=== PATIENT | male | born 1955 | race Caucasian/White ===

== ENCOUNTER 2017-03-24 14:05 | Emergency (ER) | payer OTHER ==
--- NOTE | 2017-03-24 14:28 | EDM.PDOC ---
[id number]: RASH ON LEG, DIABETIC Time Seen by Provider: 03/24/17 14:27 Source of Information: Reports: Patient, Family, Old Records, RN, RN Notes Reviewed History Limitations: Reports: No Limitations - History of Present Illness INITIAL COMMENTS - FREE TEXT/NARRATIVE: C/O rash on leg, getting worse. Pt thought is was a sunburn at first, but it became more painful and red. Pt is on diabetic medications. The only thing that he can think of that has been new or different is that his legs have been exposed to the sun more than in the past. He first developed that rash after a long day in the sun wearing shorts. Duration: Constant, Waxing/Waning Location: Reports: Lower Extremity, Left, Lower Extremity, Right Quality: Reports: Ache Severity: Moderate Improves with: Reports: None Worsens with: Reports: None Associated Symptoms: Reports: No Other Symptoms - Related Data Allergies Allergy/AdvReac Type Severity Reaction Status Date / Time No Known Allergies Allergy Verified 03/24/17 14:30 Home Meds: Home Meds Canagliflozin [Invokana] 1 tab PO DAILY 03/24/17 [History] Glimepiride [Amaryl] 1 tab PO DAILY 03/24/17 [History] Simvastatin [Zocor] 10 mg PO DAILY 03/24/17 [History] Telmisartan 1 tab PO DAILY 03/24/17 [History] metFORMIN [Glucophage] 1 tab PO DAILY 03/24/17 [History] Past Medical History Cardiovascular History: Reports: High Cholesterol, Hypertension Endocrine/Metabolic History: Reports: Diabetes, Type II, Obesity/BMI 30+ Social & Family History - Family History Family Medical History: Noncontributory - Living Situation & Occupation Living situation: Reports: , with Spouse ED ROS GENERAL - Review of Systems Review Of Systems: ROS reveals no pertinent complaints other than HPI. ED EXAM, SKIN/RASH Exam: See Below Exam Limited By: No Limitations General Appearance: Alert, WD/WN, No Apparent Distress Eye Exam: Bilateral Eye: Normal Inspection Throat/Mouth: Normal Inspection Head: Atraumatic, Normocephalic Neck: Normal Inspection, Supple, Non-Tender, Full Range of Motion Respiratory/Chest: No Respiratory Distress, Lungs Clear, Normal Breath Sounds, No Accessory Muscle Use, Chest Non-Tender Cardiovascular: Normal Peripheral Pulses, Regular Rate, Rhythm, No Edema, No Gallop, No JVD, No Murmur, No Rub GI/Abdominal: Normal Bowel Sounds, Soft, Non-Tender, No Organomegaly, No Distention, No Abnormal Bruit Back Exam: Normal Inspection Extremities: Normal Inspection, Normal Range of Motion, No Pedal Edema, Normal Capillary Refill Neurological: Alert, Oriented, CN II-XII Intact, Normal Cognition, Normal Gait, No Motor/Sensory Deficits Psychiatric: Normal Affect, Normal Mood Skin: Warm, Dry, Intact, Rash (dark red-burgandy colored non-blanching, tender rash to B/L lower exts. for ankles to just above the knees) Characteristics: Macular, Petechial Associated features: No: Warmth Course - Vital Signs Last Recorded V/S: Last Vital Signs Temp 36.5 C 03/24/17 14:26 Pulse 68 03/24/17 14:26 Resp 16 03/24/17 14:26 BP 159/70 H 03/24/17 14:26 Pulse Ox 97 03/24/17 14:26 - Orders/Labs/Meds Labs: Laboratory Tests 03/24/17 03/24/17 03/24/17 Range/Units 14:55 14:55 14:55 WBC 6.8 (5.0-10.0) 10^3/uL RBC 5.26 (4.6-6.2) 10^6/uL Hgb 15.5 (14.0-18.0) g/dL Hct 45.2 (40.0-54.0) % MCV 85.9 (80-100) fL MCH 29.5 (27.0-34.0) pg MCHC 34.3 (33.0-35.0) g/dL Plt Count 215 (150-450) 10^3/uL Neut % (Auto) 36.9 L (42.2-75.2) % Lymph % (Auto) 50.0 (20.5-50.1) % [place] % (Auto) 9.4 H (2-8) % Eos % (Auto) 3.1 H (1.0-3.0) % Baso % (Auto) 0.6 (0.0-1.0) % ESR 13 (0-15) mm/hr Sodium 140 (135-145) mmol/L Potassium 4.6 (3.6-5.0) mmol/L Chloride 103 (101-111) mmol/L Carbon Dioxide 25.0 (21.0-31.0) mmol/L Anion Gap 16.6 BUN 16 (7-18) mg/dL Creatinine 0.9 (0.6-1.3) mg/dL Est Cr Clr Drug Dosing 82.92 mL/min Estimated GFR (MDRD) > 60 BUN/Creatinine Ratio 17.77 Glucose 222 H (74-105) mg/dL Calcium 9.1 (8.4-10.2) mg/dl Total Bilirubin 0.7 (0.2-1.0) mg/dL AST 17 (10-42) IU/L ALT 24 (10-60) IU/L Alkaline Phosphatase 35 L (42-121) IU/L C-Reactive Protein 1.1 (0.0-1.3) mg/dL Total Protein 7.1 (6.7-8.2) g/dl Albumin 3.9 (3.2-5.5) g/dl Globulin 3.2 Albumin/Globulin Ratio 1.22 Urine Color (YELLOW) Urine Appearance (CLEAR) Urine pH (5.0-9.0) Ur Specific [place] (1.005-1.030) Urine Protein (NEGATIVE) Urine Glucose (UA) (NEGATIVE) Urine Ketones (NEGATIVE) Urine Occult Blood (NEGATIVE) Urine Nitrite (NEGATIVE) Urine Bilirubin (NEGATIVE) Urine Urobilinogen (0.2-1.0) mg/dL Ur Leukocyte Esterase (NEGATIVE) Urine RBC /HPF Urine WBC (0-5/HPF) /HPF Urine Bacteria (0-FEW/HPF) /HPF 03/24/17 Range/Units 15:20 WBC (5.0-10.0) 10^3/uL RBC (4.6-6.2) 10^6/uL Hgb (14.0-18.0) g/dL Hct (40.0-54.0) % MCV (80-100) fL MCH (27.0-34.0) pg MCHC (33.0-35.0) g/dL Plt Count (150-450) 10^3/uL Neut % (Auto) (42.2-75.2) % Lymph % (Auto) (20.5-50.1) % [place] % (Auto) (2-8) % Eos % (Auto) (1.0-3.0) % Baso % (Auto) (0.0-1.0) % ESR (0-15) mm/hr Sodium (135-145) mmol/L Potassium (3.6-5.0) mmol/L Chloride (101-111) mmol/L Carbon Dioxide (21.0-31.0) mmol/L Anion Gap BUN (7-18) mg/dL Creatinine (0.6-1.3) mg/dL Est Cr Clr Drug Dosing mL/min Estimated GFR (MDRD) BUN/Creatinine Ratio Glucose (74-105) mg/dL Calcium (8.4-10.2) mg/dl Total Bilirubin (0.2-1.0) mg/dL AST (10-42) IU/L ALT (10-60) IU/L Alkaline Phosphatase (42-121) IU/L C-Reactive Protein (0.0-1.3) mg/dL Total Protein (6.7-8.2) g/dl Albumin (3.2-5.5) g/dl Globulin Albumin/Globulin Ratio Urine Color Light yellow (YELLOW) Urine Appearance Clear (CLEAR) Urine pH 5.0 (5.0-9.0) Ur Specific [place] <= 1.005 (1.005-1.030) Urine Protein Negative (NEGATIVE) Urine Glucose (UA) 500 H (NEGATIVE) Urine Ketones 15 H (NEGATIVE) Urine Occult Blood Negative (NEGATIVE) Urine Nitrite Negative (NEGATIVE) Urine Bilirubin Negative (NEGATIVE) Urine Urobilinogen 0.2 (0.2-1.0) mg/dL Ur Leukocyte Esterase Negative (NEGATIVE) Urine RBC 0-5 /HPF Urine WBC 0-5 (0-5/HPF) /HPF Urine Bacteria Rare (0-FEW/HPF) /HPF Departure - Departure Time of Disposition: 15:56 Disposition: Home, Self-Care 01 Condition: Good Clinical Impression: Vasculitis limited to skin - Discharge Information Instructions: Vasculitis Referrals: Petra Diaz NP [Primary Care Provider] - Forms: ED Department Discharge Additional Instructions: Avoid sun exposure to your leg. Stop taking your Glimepiride and contact your primary doctor. Follow up in clinic with your doctor this week. Return to ER if worse at any time.
[2017-03-24 15:14] VITALS: BP 159/70
[2017-03-24 15:22] LABS: CHLORIDE,CL 103 mmol/L (101-111); SODIUM,NA 140 mmol/L (135-145)
== END 2017-03-24 16:10 | disposition home or self-care (01) ==
LOC: DL.ED 14:05
DX: L95.9 Vasculitis limited to the skin, unspecified (principal); E78.00 Pure hypercholesterolemia, unspecified; I10 Essential (primary) hypertension; E11.9 Type 2 diabetes mellitus without complications; E66.9 Obesity, unspecified; Z79.84 Long term (current) use of oral hypoglycemic drugs; Z79.899 Other long term (current) drug therapy
CPT/HCPCS: 36415; 80053; 81001; 85025; 85651; 86140; 99283

== ENCOUNTER → 2019-02-23 | Outpatient (CLI) | payer MEDICARE, OTHER | LOC: DL.CLIN 08:00 | CPT/HCPCS: 99213; G0439 ==

== ENCOUNTER 2021-04-25 06:12 | Day surgery (SDC) | payer MEDICARE, OTHER ==
[~2021-04-25 06:12] MED LIST: Proparacaine 0.5% Ophth Soln 15 ML Bottle ONE
[2021-04-25] MEDS ORDERED: Dexamethasone 4 MG/ML SDV IV ONE (06:13)
[2021-04-25] MEDS ORDERED: Midazolam 1 MG/ML 2 ML SDV IV ONE (06:13)
[2021-04-25] MEDS ORDERED: Sodium Chloride 0.9% 10 ML Syringe IV ONE (06:13)
[2021-04-25] MEDS ORDERED: Acetaminophen 325 MG Tab PO PRN (06:30)
[2021-04-25] MEDS ORDERED: Acetaminophen/Codeine 300-30 MG Tab PO PRN (06:30)
[2021-04-25] MEDS ORDERED: Ondansetron 4 MG/2 ML SDV IVPUSH PRN (06:30)
[2021-04-25] MEDS: Proparacaine 0.5% Ophth Soln 15 ML Bottle EYELF ONE (06:40)
[2021-04-25] MEDS: Povidone-Iodine 5% Sterile Ophth Soln 30 ML Bottle EYELF ONE ×2 (06:41→07:53)
[2021-04-25] MEDS: Moxifloxacin 0.5% Ophth Soln 3 ML Bottle EYELF ONE (06:42)
[2021-04-25] MEDS: Tropicamide 1% Ophth Soln 15 ML Bottle EYELF ONE (06:43)
[2021-04-25] MEDS: Phenylephrine 10% Ophth Soln 5 ML Bot EYELF ONE (06:44)
[2021-04-25] MEDS: Timolol Maleate 0.5% Ophth Soln 5 ML Bottle EYELF ONE (06:44)
[2021-04-25] MEDS: Cataract Ophth Solution EYELF ONE (06:46)
[2021-04-25] MEDS: Sodium Chloride 0.9% 10 ML Syringe FLUSH PRN (06:48)
[2021-04-25] MEDS: Tetracaine HCl/PF 0.5% 4 ML Bottle EYELF ONE (07:53)
[2021-04-25] MEDS: Lidocaine 1% 30 ML SDV ONE (07:53)
[2021-04-25] MEDS: Apraclonidine 0.5% Ophth Soln 5 ML Bot EYELF ONE (07:53)
[2021-04-25] MEDS: Diclofenac Sodium 0.1% Ophth Soln 5 ML Bottle EYELF ONE (07:53)
[2021-04-25] MEDS: Vancomycin 500 MG SDV EYELF ONE (07:54)
[2021-04-25] MEDS: Balanced Salt Solution Ophth Irrig 500 ML Bottle IOCULAR ONE (07:54)
[2021-04-25] MEDS: Dexamethasone/Neomycin/Polymyxin B Ophth Oint 3.5 GM Tube EYELF ONE (07:54)
[2021-04-25] MEDS: Chondroitin Sulfate/Hyaluronate Sodium Ophth Inj 0.75 ML Syringe EYELF ONE (07:54)
--- NOTE | 2021-04-25 09:57 | OR ---
DATE: 04/25/2021 PREOPERATIVE DIAGNOSIS: Visually significant mixed cataract, left eye. POSTOPERATIVE DIAGNOSIS: Visually significant mixed cataract, left eye. PROCEDURE: Extracapsular cataract extraction with intraocular lens implant, left eye. ANESTHESIA: Topical/local MAC. COMPLICATIONS: None. INDICATION: Mr. Olson was seen in the clinic. He has complained of a slow progressive decrease in vision, difficulty seeing television and books, difficulty reading, difficulty with driving, difficulty seeing road signs, difficulty with bright lights and glare. Explained the options, offered cataract surgery, and I explained risks including the potential for infection, retinal detachment, loss of vision, need for additional surgery, amongst others. He did see his regular veterinary toxicologist, Dr. Romero. Dr. Romero was not able to improve his vision and meet his visual needs with a change in glasses. He has requested cataract surgery to reduce symptoms and he has requested a monofocal implant. OPERATIVE DESCRIPTION: After informed consent was obtained and the risks, benefits, and alternatives were explained, the patient was brought to the operative suite and topical anesthesia was administered. The patient was then prepped and draped in the sterile fashion and attention was placed on the left eye. A sterile lid speculum was placed into the left eye to allow operative exposure. A full-thickness paracentesis was made in the temporal portion of the operative eye. Preservative-free lidocaine 0.1 mL was injected into the anterior chamber followed by viscoelastic. A full-thickness corneal incision was then made into the anterior chamber. A bent needle cystotome was used to create a small destiny in the anterior capsule. The capsulorrhexis forceps was then used to create a 360-degree curvilinear capsulorrhexis. The nucleus was then removed using a phacoemulsification handpiece and the remaining cortical material was then removed with irrigation and aspiration handpiece. Following removal of the cortical material, the capsular bag was then inspected and noted to be free of any holes or tears. Viscoelastic was then injected into the capsular bag and the intraocular lens was inserted into the capsular bag. The viscoelastic material was then removed from both the anterior and posterior chambers and from behind the IOL. The lens and capsular bag were then reinspected. The IOL was well centered and the capsular bag intact. The wound and paracentesis sites were inspected and hydrated with balanced saline solution. Both were found to be self- sealing. The intraocular pressure was assessed digitally and found to be within normal range. A good red reflex was noted at the completion of the procedure. No complications occurred during the operation. At the completion of the procedure, Maxitrol, Voltaren, and Iopidine drops were placed into the operative eye. A sterile eye shield was placed over the operative eye and the patient was transported to the postoperative recovery area having tolerated the procedure well. Postoperative instructions were given along with a postoperative appointment. The patient was advised to call with any questions or concerns. [facility] /[id number]
[2021-04-25 13:06] VITALS: BP 142/70; PULSE 67
== END 2021-04-25 09:00 | disposition home or self-care (01) ==
LOC: DL.SDS 06:12
PROVIDERS: ATTEND Ophthalmology
DX: E11.36 Type 2 diabetes mellitus with diabetic cataract (principal); H26.8 Other specified cataract; I10 Essential (primary) hypertension; E78.5 Hyperlipidemia, unspecified; Z79.82 Long term (current) use of aspirin; Z79.84 Long term (current) use of oral hypoglycemic drugs; Z79.899 Other long term (current) drug therapy
CPT/HCPCS: 00142; A9270-GY; J1100; J2250; J3370; V2632

== ENCOUNTER 2021-05-02 06:34 | Day surgery (SDC) | payer MEDICARE, OTHER ==
[2021-05-02] MEDS ORDERED: Sodium Chloride 0.9% 10 ML Syringe IV ONE (06:35)
[2021-05-02] MEDS ORDERED: Dexamethasone 4 MG/ML SDV IV ONE (06:35)
[2021-05-02] MEDS ORDERED: Midazolam 1 MG/ML 2 ML SDV IV ONE (06:35)
[2021-05-02] MEDS ORDERED: Phenylephrine 10% Ophth Soln 5 ML Bot EYERT ONE (07:00)
[2021-05-02] MEDS ORDERED: Timolol Maleate 0.5% Ophth Soln 5 ML Bottle EYERT ONE (07:00)
[2021-05-02] MEDS ORDERED: Ondansetron 4 MG/2 ML SDV IVPUSH PRN (07:00)
[2021-05-02] MEDS ORDERED: Acetaminophen 325 MG Tab PO PRN (07:00)
[2021-05-02] MEDS ORDERED: Povidone-Iodine 5% Sterile Ophth Soln 30 ML Bottle EYERT ONE ×2 (07:00→08:26)
[2021-05-02] MEDS ORDERED: Proparacaine 0.5% Ophth Soln 15 ML Bottle EYERT ONE (07:00)
[2021-05-02] MEDS ORDERED: Moxifloxacin 0.5% Ophth Soln 3 ML Bottle EYERT ONE (07:00)
[2021-05-02] MEDS ORDERED: Cataract Ophth Solution EYERT ONE (07:00)
[2021-05-02] MEDS ORDERED: Tropicamide 1% Ophth Soln 15 ML Bottle EYERT ONE (07:00)
[2021-05-02] MEDS ORDERED: Sodium Chloride 0.9% 10 ML Syringe FLUSH PRN (07:00)
[2021-05-02] MEDS ORDERED: Acetaminophen/Codeine 300-30 MG Tab PO PRN (07:00)
[2021-05-02] MEDS ORDERED: Lidocaine 1% 30 ML SDV ONE (08:25)
[2021-05-02] MEDS ORDERED: Apraclonidine 0.5% Ophth Soln 5 ML Bot EYERT ONE (08:26)
[2021-05-02] MEDS ORDERED: Dexamethasone/Neomycin/Polymyxin B Ophth Oint 3.5 GM Tube EYERT ONE (08:26)
[2021-05-02] MEDS ORDERED: Diclofenac Sodium 0.1% Ophth Soln 5 ML Bottle EYERT ONE (08:26)
[2021-05-02] MEDS ORDERED: Tetracaine HCl/PF 0.5% 4 ML Bottle EYERT ONE (08:26)
[2021-05-02] MEDS ORDERED: Chondroitin Sulfate/Hyaluronate Sodium Ophth Inj 0.75 ML Syringe EYERT ONE (08:27)
[2021-05-02] MEDS ORDERED: Vancomycin 500 MG SDV EYERT ONE (08:27)
[2021-05-02] MEDS ORDERED: Balanced Salt Solution Ophth Irrig 500 ML Bottle IOCULAR ONE (08:27)
[2021-05-02 12:41] VITALS: BP 163/71; PULSE 66
--- NOTE | 2021-05-02 13:07 | OR ---
DATE: 05/02/2021 PREOPERATIVE DIAGNOSIS: Visually significant mixed cataract, right eye. POSTOPERATIVE DIAGNOSIS: Visually significant mixed cataract, right eye. PROCEDURE: Extracapsular cataract extraction with intraocular lens implant, right eye. ANESTHESIA: Topical/local MAC. COMPLICATIONS: None. INDICATION: Mr. Olson was seen in the clinic. He has complained of a slow progressive decrease in vision. Examination revealed visually significant mixed cataract. He has difficulty seeing television, books, difficulty reading, difficulty seeing street signs, difficulty with bright lights and glare. He did see his regular staple shear operator, Dr. Romero. Dr. Romero was not able to improve his vision and meet his visual needs with a change in glasses. I have explained the options, offered cataract surgery, and I explained risks including the potential for infection; retinal detachment; loss of vision; need for additional surgery, amongst others. We discussed implant options. He has requested a toric implant. He understands that he may still require glasses for some activities, especially near work. OPERATIVE DESCRIPTION: After informed consent was obtained and the risks, benefits, and alternatives were explained, the patient was brought to the operative suite and topical anesthesia was administered. The patient was then prepped and draped in the sterile fashion and attention was placed on the right eye. A sterile lid speculum was placed into the right eye to allow operative exposure. A full-thickness paracentesis was made in the temporal portion of the operative eye. Preservative-free lidocaine 0.1 mL was injected into the anterior chamber followed by viscoelastic. A full-thickness corneal incision was then made into the anterior chamber. A bent needle cystotome was used to create a small destiny in the anterior capsule. The capsulorrhexis forceps was then used to create a 360-degree curvilinear capsulorrhexis. The nucleus was then removed using a phacoemulsification handpiece and the remaining cortical material was then removed with irrigation and aspiration handpiece. Following removal of the cortical material, the capsular bag was then inspected and noted to be free of any holes or tears. Viscoelastic was then injected into the capsular bag and the intraocular lens was inserted into the capsular bag. The implant was oriented to correspond with preoperative corneal ho made with the patient in the upright position. The viscoelastic material was then removed from both the anterior and posterior chambers and from behind the IOL. The lens and capsular bag were then reinspected. The IOL was well centered and the capsular bag intact. The wound and paracentesis sites were inspected and hydrated with balanced saline solution. Both were found to be self-sealing. The intraocular pressure was assessed digitally and found to be within normal range. A good red reflex was noted at the completion of the procedure. No complications occurred during the operation. At the completion of the procedure, Maxitrol, Voltaren, and Iopidine drops were placed into the operative eye. A sterile eye shield was placed over the operative eye and the patient was transported to the postoperative recovery area having tolerated the procedure well. Postoperative instructions were given along with a postoperative appointment. The patient was advised to call with any questions or concerns. [facility] /[id number]
== END 2021-05-02 09:37 | disposition home or self-care (01) ==
LOC: DL.SDS 06:34
PROVIDERS: ATTEND Ophthalmology
DX: E11.36 Type 2 diabetes mellitus with diabetic cataract (principal); H26.8 Other specified cataract; I10 Essential (primary) hypertension; E78.5 Hyperlipidemia, unspecified; Z79.82 Long term (current) use of aspirin; Z79.84 Long term (current) use of oral hypoglycemic drugs; Z79.899 Other long term (current) drug therapy
CPT/HCPCS: 00142; A9270-GY; J1100; J2250; J3370; V2787-GY

== ENCOUNTER 2023-01-07 12:27 | Emergency (ER) | payer MEDICARE ==
[2023-01-07] MEDS ORDERED: Sodium Chloride 0.9% 10 ML Syringe FLUSH PRN (12:38)
[2023-01-07] MEDS ORDERED: Aspirin 81 MG Tab.Chew PO ONE (13:08)
[2023-01-07 13:16] LABS: ANION GAP 13.5 mEq/L (7-13)
[2023-01-07] MEDS ORDERED: Heparin Sodium 5,000 Units/ML Vial IVPUSH ONE (13:30)
[2023-01-07] MEDS ORDERED: Heparin Sodium/0.45% NaCl 25,000 UNITS/500 ML BAG IV SCH (13:30)
[2023-01-07] MEDS ORDERED: Metoprolol Tartrate 5 MG/5 ML SDV IVPUSH ONE (13:31)
[2023-01-07 13:45] VITALS: BP 186/105; PULSE 97
[2023-01-07] MEDS ORDERED: Sodium Chloride 0.9% 1,000 ML IV ONE (14:15)
== END 2023-01-07 18:14 ==
LOC: DL.ED 12:27
DX: I21.4 Non-ST elevation (NSTEMI) myocardial infarction (principal); E11.9 Type 2 diabetes mellitus without complications; E78.00 Pure hypercholesterolemia, unspecified; I10 Essential (primary) hypertension; E66.9 Obesity, unspecified; Z68.32 Body mass index [BMI] 32.0-32.9, adult; Z79.899 Other long term (current) drug therapy; Z79.82 Long term (current) use of aspirin; Z79.84 Long term (current) use of oral hypoglycemic drugs
CPT/HCPCS: 36415; 71045; 80053; 82150; 83605; 83690; 83735; 84443; 84484; 85025; 85379; 85610; 86140; 93005; 93010; 96365; 96366; 96375; 96376; 99285; 99285-25; A9270-GY; J1644; J3490; J7030